=== PATIENT | female | born 1955 | race Two or more races ===

== ENCOUNTER 2016-08-12 00:58 | Emergency (ER) | payer MEDICARE, OTHER ==
[~2016-08-12] VITALS: Ht 149.9 cm; Wt 88.5 kg
[2016-08-12] MEDS ORDERED: KETOROLAC TROMETHAMINE INJ 60 MG/2 ML VIAL IM ONE ×2 (01:24→01:30)
[2016-08-12 03:04] VITALS: BP 130/81
== END 2016-08-12 03:05 | disposition home or self-care (01) ==
LOC: ER 00:59
DX: M79.601 Pain in right arm (principal); M79.1 Myalgia; I10 Essential (primary) hypertension
CPT/HCPCS: 71010; 73010; 93005; 96372; 99284; A4606; J1885; Z7610